=== PATIENT | male | born 1950 | race Caucasian/White ===

== ENCOUNTER 2016-06-22 11:32 | Emergency (ER) | payer OTHER ==
[~2016-06-22] VITALS: Ht 182.8 cm; Wt 77.1 kg
[2016-06-22] MEDS ORDERED: FLUTICASON0.05 MG/AC NAS (12:20)
[2016-06-22] MEDS ORDERED: TERAZOSIN5 MG PO (12:20)
[2016-06-22] MEDS ORDERED: TRAZODONE50 MG PO (12:22)
[2016-06-22] MEDS ORDERED: COMBIVENT RESPIM4 GM INH (12:22)
[2016-06-22] MEDS ORDERED: PRAVASTATIN SOD80 MG PO (12:23)
[2016-06-22] MEDS ORDERED: HALOPERIDOL5 MG PO (12:24)
[2016-06-22] MEDS ORDERED: RISPERDAL3 M1 PO (12:25)
[2016-06-22] MEDS ORDERED: DUONEB 3 MG/3 ML3 M1 INH (12:26)
[2016-06-22] MEDS ORDERED: VENTOLIN 02.5 MG/3 M INH (12:27)
[2016-06-22] MEDS ORDERED: FISH OIL 1,001000 MG PO (12:28)
[2016-06-22] MEDS ORDERED: ASPIR 8181 MG PO (12:28)
[2016-06-22 12:29] LABS: BASO % 0.2 % (0.0-1.0); EOS # 0.1 10*3/uL (0.0-0.4); EOS % 1.7 % (1.0-4.0); HEMATOCRIT 38.7 % (42.0-52.0); HEMOGLOBIN 13.2 g/dl (14.0-18.0); LYMPH # 1.2 10*3/uL (1.3-4.4); LYMPH % 21.6 % (27.0-41.0); MEAN CELL VOLUME 89.6 fl (80.0-94.0); MEAN CORPUSCULAR HGB 30.6 pg (27.0-31.0); MEAN CORPUSCULAR HGB CONC 34.1 g/dl (33.0-37.0); MEAN PLATELET VOLUME 9.2 fl (9.6-12.3); MONO # 0.5 10*3/uL (0.1-1.0); NEUT # 3.9 10*3/uL (2.3-7.9); NEUT % 68.3 % (47.0-73.0); PLATELET COUNT AUTOMATED 181 10*3/uL (130-400); RED BLOOD COUNT 4.32 10*6/uL (4.50-5.90); RED CELL DISTRI WIDTH 12.5 % (0-14.5); WHITE BLOOD COUNT 5.7 10*3/uL (4.8-10.8)
[2016-06-22] MEDS ORDERED: OXYCODONE AND A1 TAB PO (12:29)
[2016-06-22] MEDS ORDERED: OXYCODONE AND A1 TA9 PO (12:30)
[2016-06-22] MEDS ORDERED: COGENTIN0.5 MG PO (12:31)
[2016-06-22] MEDS ORDERED: DOCUSATE SODIU100 M2 PO (12:31)
[2016-06-22] MEDS ORDERED: DELTA D3400 UNIT PO (12:32)
[2016-06-22 12:46] LABS: BILIRUBIN, TOTAL 0.6 mg/dl (0.2-1.0); POTASSIUM 4.3 mmol/L (3.5-5.1); TOTAL PROTEIN 6.3 gm/dL (6.4-8.2)
== END 2016-06-22 13:58 | disposition home or self-care (01) ==
LOC: ED 11:32
PROVIDERS: Nurse Practitioner Family
DX: Z48.00 Encounter for change or removal of nonsurgical wound dressing (principal); F17.200 Nicotine dependence, unspecified, uncomplicated; Z79.82 Long term (current) use of aspirin; Z79.899 Other long term (current) drug therapy

== ENCOUNTER 2020-05-20 10:08 | Emergency (ER) | payer OTHER ==
[~2020-05-20] VITALS: Ht 167.6 cm; Wt 69.9 kg
[~2020-05-20 10:08] MED LIST: ASPIR 8181 MG PO; COGENTIN0.5 MG PO; COMBIVENT RESPIM4 GM INH; DELTA D3400 UNIT PO; DOCUSATE SODIU100 M2 PO; DUONEB 3 MG/3 ML3 M1 INH; FISH OIL 1,001000 MG PO; FLUTICASON0.05 MG/AC NAS; HALOPERIDOL5 MG PO; OXYCODONE AND A1 TA9 PO; OXYCODONE AND A1 TAB PO; PRAVASTATIN SOD80 MG PO; RISPERDAL3 M1 PO; TERAZOSIN5 MG PO; TRAZODONE50 MG PO; VENTOLIN 02.5 MG/3 M INH
[2020-05-20 10:47] LABS: BASO % 0.5 % (0.0-1.0); EOS # 0.1 10*3/uL (0.0-0.4); EOS % 1.7 % (1.0-4.0); HEMATOCRIT 43.4 % (42.0-52.0); LYMPH # 0.4 10*3/uL (1.3-4.4); LYMPH % 10.4 % (27.0-41.0); MEAN CELL VOLUME 89.7 fl (80.0-94.0); MEAN CORPUSCULAR HGB 29.8 pg (27.0-31.0); MEAN CORPUSCULAR HGB CONC 33.2 g/dl (33.0-37.0); MEAN PLATELET VOLUME 9.5 fl (9.6-12.3); MONO # 0.4 10*3/uL (0.1-1.0); NEUT # 3.3 10*3/uL (2.3-7.9); NEUT % 78.2 % (47.0-73.0); PLATELET COUNT AUTOMATED 155 10*3/uL (130-400); RED BLOOD COUNT 4.84 10*6/uL (4.50-5.90); RED CELL DISTRI WIDTH 12.6 % (0-14.5); WHITE BLOOD COUNT 4.2 10*3/uL (4.8-10.8)
[2020-05-20 10:59] LABS: ACT PARTIAL THROMBO TIME 30.5 SECONDS (20.0-32.1)
[2020-05-20 11:07] LABS: CREATININE 2.05 mg/dL (0.70-1.30); POTASSIUM 4.4 mmol/L (3.5-5.1); TOTAL PROTEIN 6.8 gm/dL (6.4-8.2); TROPONIN I 0.022 ng/ml (<0.045)
== END 2020-05-20 13:20 | disposition home or self-care (01) ==
LOC: ED 10:08
PROVIDERS: Emergency Medicine
DX: I95.9 Hypotension, unspecified (principal); N28.9 Disorder of kidney and ureter, unspecified; Z79.899 Other long term (current) drug therapy; Z90.5 Acquired absence of kidney